=== PATIENT | female | born 1935 | race Caucasian/White ===

== ENCOUNTER 2017-01-21 08:00 | Inpatient (IN) | payer BC, OTHER ==
[2016-12-28 09:05] VITALS: BMI 32.0
--- NOTE | 2016-12-28 09:39 | PAT Medication Instructions ---
Service Date Dec 28, 2016. Current Home Medication List Acetaminophen (Tylenol), 650 MG PO QID PRN for Pain Apixaban (Eliquis), 2.5 MG PO QAM Coenzyme Q10 (Ubidecarenone) (Co Q-10), 200 MG PO QAM Fluoxetine (Prozac), 20 MG PO QAM Gabapentin (Neurontin), 300 MG PO TID Glipizide (Glipizide Er), 1 TAB PO QAM Levothyroxine Sodium (Synthroid), 50 MCG PO QAM Lisinopril (Zestril), 20 MG PO QAM Multivitamin (Multivitamin), 1 TAB PO QAM Pantoprazole (Protonix), 40 MG PO BID Rosuvastatin Calcium (Crestor), 10 MG PO QAM Medication Instructions For Your Scheduled Surgery - Check with surgeon/prescribing physician Apixaban (Eliquis), 2.5 MG PO QAM - Hold the following medications 2 weeks prior to surgery: Coenzyme Q10 (Ubidecarenone) (Co Q-10), 200 MG PO QAM - Hold the following medications the morning of surgery: Lisinopril (Zestril), 20 MG PO QAM Multivitamin (Multivitamin), 1 TAB PO QAM Glipizide (Glipizide Er), 1 TAB PO QAM - Take the following medications the morning of surgery with a sip of water: Rosuvastatin Calcium (Crestor), 10 MG PO QAM Pantoprazole (Protonix), 40 MG PO BID Levothyroxine Sodium (Synthroid), 50 MCG PO QAM Gabapentin (Neurontin), 300 MG PO TID Fluoxetine (Prozac), 20 MG PO QAM Acetaminophen (Tylenol), 650 MG PO QID PRN for Pain - Take the following medications as scheduled the night before surgery: Pantoprazole (Protonix), 40 MG PO BID Gabapentin (Neurontin), 300 MG PO TID Acetaminophen (Tylenol), 650 MG PO QID PRN for Pain If you have any questions please call us at [phone] (Renée Rudd PA-C) or [phone] or [phone]
--- NOTE | 2016-12-28 10:26 | DIAGNOSTIC IMAGING REPORT ---
TWO VIEW CHEST CLINICAL HISTORY: Preoperative examination. FINDINGS: PA and lateral chest radiographs are obtained. No prior studies are available for comparison at the time of dictation. The cardiomediastinal silhouette is unremarkable. There is atelectasis at the left lung base and mild elevation of right hemidiaphragm. The lungs and pleural spaces are otherwise clear. There is no pneumothorax. The skeletal structures are osteopenic. Degenerative change and mild scoliosis are noted in the thoracic spine. An IVC filter is noted in the upper abdomen. IMPRESSION: No active disease in the chest. Electronically signed by: Keith Park M.D. 12/28/2016 10:24 AM Dictated Date/Time: 12/28/2016 10:17 AM
[2016-12-28 10:32] LABS: BASO % 0.4 %; BASO ABS # 0.03 K/uL (0-0.2); COMPLETE YES; EOS % 1.5 %; HEMATOCRIT 38.9 % (37-47); IG% 0.1 %; LYMPH ABS # 2.17 K/uL (1.2-3.4); MEAN CORPUSCULAR HEMOGLOBIN 30.3 pg (25-34); MEAN CORPUSCULAR HGB CONC 33.7 g/dl (32-36); MEAN PLATELET VOLUME 11.8 fL (7.4-10.4); MONO % 9.7 %; NEUT % 58.3 %; PLATELET COUNT 219 K/uL (130-400); RED BLOOD COUNT 4.32 M/uL (4.2-5.4); WHITE BLOOD COUNT 7.24 K/uL (4.8-10.8)
[2016-12-28 10:59] LABS: BUN/CREATININE RATIO 21.3 (10-20); CREATININE 0.75 mg/dl (0.60-1.20); POTASSIUM 4.4 mmol/L (3.5-5.1)
[~2017-01-21] VITALS: Ht 162.6 cm; Wt 84.6 kg
[2017-01-21] VITALS (9 sets, daily range): BP systolic 99–176; BP diastolic 62–79; PULSE 71–88; TEMP 36.3–36.8; O2SAT 93–98; Ht 162.6 cm; Wt 84.6 kg
--- NOTE | 2017-01-21 07:17 | History & Physical Bridge Note ---
H&P Re-Evaluation Bridge Note: I have examined the patient, reviewed the History & Physical and in the interval since the performance of the History & Physical I have noted the following changes of clinical significance: No changes noted
[~2017-01-21 08:00] MED LIST: ACET-1311 PO; APIX1TAB PO; CEFAZOLIN 2000 MG/60 ML D5W IV SCH; COEN1CAP37 PO; CRS/10 PO; FLUO20CA35 PO; GABA-113 PO; GLIP-197 PO; LACTATED RINGER'S 1000ML 1,000 ML IV SCH; LEVO50TA PO; LISI-792 PO; MULT-506 PO; PANT40TA PO
[2017-01-21] MEDS ORDERED: ATROPINE SULFATE 0.1 MG/ML 5ML SYR IV PRN (08:15)
[2017-01-21] MEDS ORDERED: MoRPHine SULFATE 10 MG/ML CARP/VIAL IV PRN (08:15)
[2017-01-21] MEDS ORDERED: FENTANYL CITRATE INJ 50 MCG/1 ML 2 ML VIAL IV PRN (08:15)
[2017-01-21] MEDS ORDERED: ONDANSETRON INJ 2 MG/ML 2 ML VIAL IV PRN ×2 (08:15→12:00)
[2017-01-21] MEDS ORDERED: EpHEDrine SULFATE INJ 50 MG/ML AMP IV PRN (08:15)
[2017-01-21] MEDS ORDERED: MIDAZOLAM HCL 1 MG/ML 2ML VIAL ONE (08:51)
[2017-01-21] MEDS ORDERED: FENTANYL CITRATE INJ 50 MCG/1 ML 2 ML VIAL ONE ×3 (08:51→11:58)
[2017-01-21] MEDS ORDERED: BUPIVACAINE/EPINEPHRINE 0.5% MPF 1:200,000 30 ML VIAL ONE (09:28)
[2017-01-21] MEDS ORDERED: BACITRACIN 50000 UNIT VIAL ONE (09:28)
[2017-01-21] MEDS ORDERED: SODIUM CHLORIDE 0.9% PF 50 ML VIAL ONE (09:28)
--- NOTE | 2017-01-21 09:41 | History and Physical ---
History & Physical Date Jan 21, 2017. Chief Complaint back and leg pain History of Present Illness The patient is a 81 year old female with complaints of Additional History Hepatic Disease: No Endocrine Disorder: No Kidney Disease: No Hypertension: No Heart Disease: No Bleeding Tendencies: No Infectious Diseases: No Allergies Coded Allergies: Latex (Verified Allergy, Intermediate, itching, 01/21/17) Adhesives (Verified Allergy, Mild, TAPE - ITCHY AND RED, 01/21/17) NO KNOWN DRUG ALLERGIES (Verified Allergy, Mild, ., 01/21/17) Home Medications Scheduled Apixaban (Eliquis), 2.5 MG PO QAM Coenzyme Q10 (Ubidecarenone) (Co Q-10), 200 MG PO QAM Fluoxetine (Prozac), 20 MG PO QAM Glipizide (Glipizide Er), 1 TAB PO QAM Levothyroxine Sodium (Synthroid), 50 MCG PO QAM Lisinopril (Zestril), 20 MG PO QAM Multivitamin (Multivitamin), 1 TAB PO QAM Pantoprazole (Protonix), 40 MG PO BID Rosuvastatin Calcium (Crestor), 10 MG PO QAM Scheduled PRN Acetaminophen (Tylenol), 650 MG PO QID PRN for Pain Physical Examination Skin: warm/dry, no rash Eyes: normal inspection, EOMI, sclerae normal ENT: normal ENT inspection, pharynx normal Head: normocephalic, atraumatic Neck: supple, no adenopathy, trachea midline Respiratory/Chest: lungs clear, normal breath sounds, no respiratory distress Cardiovascular: regular rate, rhythm, no edema, no murmur Abdomen / GI: normal bowel sounds, non tender Back: normal inspection Extremities: normal inspection, normal range of motion Neurologic/Psych: no motor/sensory deficits, alert, normal reflexes, oriented x 3 Diagnosis lumbar stenosis Plan of Treatment decompression fusion L3-S1
[2017-01-21] MEDS ORDERED: HYDROmorphone INJ 2 MG/ML SYR/VIAL ONE ×3 (10:10→12:00)
[2017-01-21] MEDS ORDERED: ROCURONIUM BROMIDE 10 MG/ML 5 ML VIAL ONE (10:33)
[2017-01-21] MEDS ORDERED: DEXAMETHASONE SOD INJ 4 MG/ML VIAL ONE (10:33)
[2017-01-21] MEDS ORDERED: LIDOCAINE HCL 2% 2 ML VIAL (20MG/ML) ONE (10:33)
[2017-01-21] MEDS ORDERED: PROPOFOL IV EMULSION 10 MG/ML 20 ML VIAL IV ONE (10:33)
[2017-01-21] MEDS ORDERED: ONDANSETRON INJ 2 MG/ML 2 ML VIAL ONE (10:33)
[2017-01-21] MEDS ORDERED: GLYCOPYRROLATE INJ 0.2 MG/ML VIAL ONE (11:39)
[2017-01-21] MEDS ORDERED: EpHEDrine SULFATE 50MG/5ML SYR ONE (11:39)
[2017-01-21] MEDS ORDERED: NEOSTIGMINE METHYLSULFATE 1 MG/ML 10ML VIAL ONE (11:39)
[2017-01-21] MEDS ORDERED: SODIUM CHLORIDE 0.9% 1000ML 1,000 ML IV SCH (11:49)
--- NOTE | 2017-01-21 11:49 | [facility] Post Operative Brief Note ---
Immediate Operative Summary Operative Date Jan 21, 2017. Pre-Operative Diagnosis Lumbar Stenosis Post-Operative Diagnosis Lumbar Stenosis Procedure(s) Performed L3-L4, L4-L5, L5-S1 Lumber Laminectomy, Decompression; L3-L4, L4-L5, L5-S1 Posterolateral Fusion. Interbody cage at L5-S1 with the use of Safia and Bone Morphogentic Protein. Surgeon Dr. Bhargav Franklin Older Adult Social Work Specialist Surgeon(s) Juan Gallegos PA-C Estimated Blood Loss 325mL Findings stenosis/spondy Specimens None per surgeon
[2017-01-21] MEDS ORDERED: FLOSEAL HEMOSTATIC MATRIX 10ML TOP ONE (11:51)
[2017-01-21] MEDS ORDERED: BISACODYL 10 MG SUPP PR PRN (12:00)
[2017-01-21] MEDS ORDERED: ACETAMINOPHEN IV 100 ML IV PRN (12:00)
[2017-01-21] MEDS ORDERED: SOD PHOSPHATE/SOD BIPHOSPHATE ENEMA 132 ML BTL PR PRN (12:00)
[2017-01-21] MEDS ORDERED: LORAZEPAM INJ 0.5 MG in SYRINGE 0.75 ML IV PRN (12:00)
[2017-01-21] MEDS ORDERED: FAMOTIDINE 20 MG TAB PO PRN (12:00)
[2017-01-21] MEDS ORDERED: PROMETHAZINE HCL INJ 12.5 MG in SODIUM CHLORIDE 0.9% 50ML 50 ML IV PRN (12:00)
[2017-01-21] MEDS ORDERED: ACETAMINOPHEN 325 MG TAB PO PRN (12:00)
[2017-01-21] MEDS ORDERED: ALUMINUM/MAGNESIUM SUSP 30 ML UDC PO PRN (12:00)
[2017-01-21] MEDS ORDERED: hydrOXYzine HCL 25 MG TAB PO PRN (12:00)
[2017-01-21] MEDS ORDERED: DO NOT ADMINISTER FLU VACCINE PRN ×3 (12:00)
[2017-01-21] MEDS ORDERED: NALOXONE HCL 0.4 MG/1 ML VIAL/CARP IV PRN ×2 (12:00)
[2017-01-21] MEDS ORDERED: MAGNESIUM HYDROXIDE SUSP 30 ML UDC PO PRN (12:00)
[2017-01-21] MEDS ORDERED: DO NOT ADMINISTER PNEUMOCOCCAL VACCINE PRN ×2 (12:00)
[2017-01-21] MEDS ORDERED: METOCLOPRAMIDE HCL INJ 5 MG/ML 2 ML VIAL IV PRN (12:00)
--- NOTE | 2017-01-21 12:02 | DIAGNOSTIC IMAGING REPORT ---
INTRAOPERATIVE RADIOGRAPHS CLINICAL HISTORY: L3-S1 spinal fusion. Fluoroscopy time: 22 seconds FINDINGS: 2 spot fluoroscopic views of lumbar spine are presented. There is evidence of discectomy at L5-S1 with laminectomy and posterior fusion from L3 -S1. Interpedicular screws are present at all levels. Orthopedic hardware is grossly intact. IMPRESSION: Intraoperative images from L3 -S1 spinal fusion as above. Electronically signed by: Keith Park M.D. 01/21/2017 12:00 PM Dictated Date/Time: 01/21/2017 12:00 PM
--- NOTE | 2017-01-21 12:09 | OPERATIVE REPORT ---
DATE OF OPERATION: 01/21/2017 PREOPERATIVE DIAGNOSES: Spinal stenosis, spondylolisthesis. POSTOPERATIVE DIAGNOSIS: Same. PROCEDURE PERFORMED: 1. Lumbar decompression and medial facetectomy and foraminotomy L2-L3, L3-L4, L4-L5, L5-S1. 2. Posterior spinal fusion L3-L4, L4-L5, L5-S1. 3. Placement posterior segmental instrumentation using Orthros rods and screws as well as a crosslink L3-L4, L4-L5, L5-S1. 4. Interbody fusion L5-S1. 5. Placement of PEEK cage 10 x 22 at L5-S1. 6. Placement of locally harvested morselized autograft posterior gutters. 7. Placement of Infuse collagen sponge combined with Mastergraft in posterior gutters and Safia bone grafting interbody space. SURGEON: Dr. Bhargav Franklin. INFORMATION ANALYST: Due to the complex nature of the procedure, the entire surgery was performed with the clinical nursing assistant of SHEILA Sterling. The office assistant receptionist, under direct supervision, was involved in the actual performance of all aspects of the surgical procedure including hemostasis, tissue retraction and incision, instrument management, patient positioning, and wound closure. ANESTHESIA: General. DISPOSITION: The patient awakened and taken to PACU in stable condition. HISTORY OF PATIENT'S PROBLEMS: This is a 81-year-old female that presents with above-mentioned diagnosis. After failing an extensive course of nonoperative care, elected to undergo the above-mentioned procedure. Risks, benefits, pros, cons, and alternatives were outlined in detail preoperatively. PROCEDURE: The patient was met with preoperatively, case discussed and all questions were addressed. At that point the patient was taken back to operative suite and after undergoing successful general endotracheal intubation via department of anesthesia was placed in prone position on Stanley table atop Stiven frame. All bony prominences were well padded and the eyes were inspected to ensure there was no external pressure placed upon them. At this point, lumbar spine was prepped and draped in normal sterile fashion. Sharp dissection with the assistance of Bovie cautery performed down to and exposing the lamina and transverse processes of L3, L4, L5 and sacral ala bilaterally. From a caudal to cephalad fashion, complete laminectomy of L5, L4, L3 and partial laminectomy of L2 was performed addressing severe lateral recess foraminal disease. Pedicle screws were then placed in L3, L4, L5 and S1 levels bilaterally with the assistance of fluoroscopy and the appropriately sized jose a provisionally placed. Through a transforaminal approach on the left, a complete discectomy of L5-S1 was performed, endplates curetted to subcortical bleeding bone and a 10 x 22 mm PEEK cage filled with Safia bone grafting tapped into position. The rods were then locked into final position bilaterally, crosslink locked into place and transverse processes of L2, L3, L4, L5 and sacral ala burred to subcortical bleeding bone. Infused collagen sponge combined mastograph and locally harvested and soaked autograft was placed in the posterior gutters. A 7 flat BENOIT drain was inserted. Incision was closed with 1-0 Vicryl in the fascia, 2-0 Vicryl subcutaneously, 4-0 Monocryl for final skin closure. Steri-Strips and sterile dressing placed. The patient was awakened and taken to PACU in stable condition. I attest to the content of the Intraoperative Record and any orders documented therein. Any exceptio ns are noted below.
[2017-01-21] MEDS ORDERED: HYDROmorphone HCL 0.5MG/ML 50 ML CASSETTE ONE (12:24)
[2017-01-21] MEDS ORDERED: PHARMACY GLYCEMIC MGMT CONSULT PRN (12:29)
[2017-01-21] MEDS: HYDROmorphone HCL 0.5MG/ML 50 ML CASSETTE IV PRN ×3 (13:54→23:07)
--- NOTE | 2017-01-21 14:02 | Anesthesiology Progress Note ---
Anesthesia Post Op Note Date & Time Jan 21, 2017 at 14:03 Vital Signs Pain Intensity: 0 Vital Signs Past 12 Hours Date Time Temp Pulse Resp B/P Pulse Ox O2 Delivery O2 Flow Rate FiO2 01/21/17 13:40 79 16 142/70 94 Nasal Cannula 3 01/21/17 13:30 78 16 138/72 95 Nasal Cannula 3 01/21/17 13:20 82 16 133/68 94 Nasal Cannula 3 01/21/17 13:10 74 16 129/73 94 Nasal Cannula 3 01/21/17 13:00 77 16 142/77 95 Nasal Cannula 3 01/21/17 12:50 36.5 77 16 139/84 97 Nasal Cannula 3 01/21/17 12:40 Nasal Cannula 3 01/21/17 12:40 87 16 137/70 97 Mask 5 01/21/17 12:30 91 16 144/72 97 Mask 5 01/21/17 12:20 85 12 121/62 98 Mask 10 01/21/17 12:14 36.6 83 12 126/66 95 Mask 10 01/21/17 08:25 36.7 82 20 176/79 97 Room Air Notes Mental Status: alert / awake / arousable, participated in evaluation Pt Amnestic to Procedure: Yes Nausea / Vomiting: adequately controlled Pain: adequately controlled Airway Patency, RR, SpO2: stable & adequate BP & HR: stable & adequate Hydration State: stable & adequate Anesthetic Complications: no major complications apparent
[2017-01-21] MEDS: LACTATED RINGER'S 1000ML 1,000 ML IV SCH ×2 (14:19→18:22)
[2017-01-21] MEDS ORDERED: GLUCOSE 40% GEL 15 GM TUBE PO PRN (15:45)
[2017-01-21] MEDS ORDERED: DEXTROSE 50% 50 ML SYR IV PRN (15:45)
[2017-01-21] MEDS ORDERED: GLUCAGON FOR INJ 1 MG VIAL SQ PRN (15:45)
[2017-01-21] MEDS ORDERED: GLUCOSE 10 TABS/TUBE PO PRN (15:45)
--- NOTE | 2017-01-21 15:58 | Pharmacy Progress Note ---
Glycemic Control Intl Consult Date of Service Jan 21, 2017. Scope Glycemic Pharmacist consulted by Dr Franklin on 01/21/17 for glycemic control and to write orders per [facility] inpatient glycemic control protocol Objective Weight (Kilograms): 84.600 Accuchecks BSG (last 24hrs): Test 01/21/17 08:22 01/21/17 12:29 01/21/17 14:16 Bedside Glucose 133 mg/dl (70-90) 151 mg/dl (70-90) 162 mg/dl (70-90) Recent Pertinent Medications Outpatient Anti-diabetic Regimen: * Glipizide ER 5 mg po daily * A1c = pending % 01/22/17 The patient is currently receiving: * Basal insulin: none * Correctional Insulin: none * Prandial insulin: none * Oral Agents: Glipizide ER 5 mg daily Risk Factors for Insulin Resistance: * Steroids: Dexamethasone 12 mg in OR today, then 6 mg q8h x3 * Infection: on cefazolin perioperatively * Pressors: no * IVF: LR @ 150 ml/hr * Recent Surgery: OR today spinal surgery * Diet: npo advancing to type 2 diabetic * Mechanical Ventilation: no Assessment & Plan ASSESSMENT: * ADA & AACE recommend a goal blood sugar range 140-180 mg/dl for the majority of critically ill & non-critically ill patients. However, more stringent targets may be selected in individual cases. * 81 yo type 2 diabetic on oral meds. A1c pending to assess recent glycemic control. I expect BSG's to rise due to stress of surgery and steroids. The effect of dexamethasone may persist for 48-72 hr. Will start weight-based correction and carb ratio and reassess in am. PLAN FOR INPATIENT GLYCEMIC CONTROL: * Holding outpatient oral diabetes medications * no basal insulin at this time * Correctional Insulin with NOVOLOG per scale ACHS or Q6hrs while NPO * Goal Range: Low 110 mg/dL - High 150 mg/dL * Correction Factor: 30 mg/dL/unit * Nutritional / Prandial insulin per carb ratio of 1 unit per 9 grams CHO consumed * Please note that the plan above was derived based on current level of insulin resistance and hospital stress. These recommendations are appropriate for inpatient admission only. Plan of care upon discharge will need to be reassessed to avoid potential outpatient hypo/hyperglycemia. Thank you.
[2017-01-21] MEDS: DEXAMETHASONE INJ 6 MG in SYRINGE 0 ML IV SCH (18:22)
[2017-01-21] MEDS: CEFAZOLIN IV 2,000 MG in DEXTROSE 5% 50ML 50 ML IV SCH (18:22)
[2017-01-21] MEDS: INSULIN ASPART 100 UNITS/ML 3 ML PEN SC SCH ×2 (18:27→21:27)
[2017-01-21] MEDS: PANTOprazole SOD 40 MG TAB PO SCH (21:21)
[2017-01-21] MEDS: DOCUSATE SODIUM/SENNA 50/8.6MG TAB PO SCH (21:22)
[2017-01-22] VITALS (9 sets, daily range): BP systolic 108–140; BP diastolic 59–71; PULSE 68–90; TEMP 36.6–37.1; O2SAT 91–94
[2017-01-22] MEDS: DEXAMETHASONE INJ 6 MG in SYRINGE 0 ML IV SCH ×2 (01:41→10:35)
[2017-01-22] MEDS: CEFAZOLIN IV 2,000 MG in DEXTROSE 5% 50ML 50 ML IV SCH (01:41)
[2017-01-22] MEDS: LACTATED RINGER'S 1000ML 1,000 ML IV SCH (01:41)
[2017-01-22] MEDS ORDERED: DC PCA SCH (06:00)
[2017-01-22] MEDS ORDERED: HYDROmorphone INJ 1 MG/ML SYR IV PRN (06:00)
[2017-01-22] MEDS ORDERED: NURSING VERBAL MED ORDER ONE (06:00)
[2017-01-22] MEDS ORDERED: HYDROmorphone INJ 0.5 MG/0.5 ML SYR IV PRN (06:00)
[2017-01-22] MEDS ORDERED: OXYCODONE HCL IR 5 MG TAB (IMMEDIATE RELEASE) PO PRN (06:00)
[2017-01-22] MEDS: LEVOTHYROXINE 50 MCG TAB PO SCH (06:02)
[2017-01-22 07:16] LABS: COMPLETE YES; HEMATOCRIT 32.5 % (37-47); IG% 0.3 %; LYMPH % 7.3 %; LYMPH ABS # 0.76 K/uL (1.2-3.4); MEAN CELL VOLUME 89.5 fL (80-100); MEAN CORPUSCULAR HEMOGLOBIN 29.5 pg (25-34); MEAN CORPUSCULAR HGB CONC 32.9 g/dl (32-36); MEAN PLATELET VOLUME 11.9 fL (7.4-10.4); NEUT % 88.4 %; PLATELET COUNT 204 K/uL (130-400); RED BLOOD COUNT 3.63 M/uL (4.2-5.4); WHITE BLOOD COUNT 10.45 K/uL (4.8-10.8)
[2017-01-22 07:49] LABS: CALCIUM 8.6 mg/dl (8.5-10.1); CREATININE 0.89 mg/dl (0.60-1.20); POTASSIUM 4.3 mmol/L (3.5-5.1)
[2017-01-22] MEDS: ROSUVASTATIN CALCIUM 10 MG TAB PO SCH (08:32)
[2017-01-22] MEDS: PANTOprazole SOD 40 MG TAB PO SCH ×2 (08:32→21:22)
[2017-01-22] MEDS: FLUOXETINE HCL 20 MG CAP PO SCH (08:33)
[2017-01-22] MEDS: LISINOPRIL 20 MG TAB PO SCH (08:38)
[2017-01-22] MEDS: INSULIN ASPART 100 UNITS/ML 3 ML PEN SC SCH ×4 (08:42→21:00)
[2017-01-22 08:49] LABS: ESTIMATED AVERAGE GLUCOSE 143 mg/dl; HA1C FLAG Normal (Normal)
[2017-01-22] MEDS ORDERED: RXC5 PO (10:11)
--- NOTE | 2017-01-22 10:12 | Discharge Instructions ---
Discharge Instructions Date of Service Jan 22, 2017. Admission Reason for Admission: Lumbar Spinal Stenosis Discharge Discharge Diagnosis / Problem: stenosis Discharge Goals Goal(s): Improve function Activity Recommendations Activity Limitations: per Instructions/Follow-up section . Instructions / Follow-Up Instructions / Follow-Up ACTIVITY RECOMMENDATIONS: SELF CARE INSTRUCTIONS AFTER THORACIC/LUMBAR FUSIONS 1. You may walk to your tolerance. It is good exercise for your legs and back. Expect some back and intermittent leg aches and pains. 2. You may perform "counter-top" level activities (make a sandwich, isaias with a project, etc.). 3. No bending or lifting of more than 10 pounds or back twisting of any nature (roll like a log when turning in bed). 4. You may ride in a car for 20-30 minutes at a time. No driving until after your first visit with your doctor. 5. Frequent changes of position and restricting sitting to 30 minutes at a time will help limit the amount of back spasms and stiffness you may experience. 6. You may discontinue the use of ambulatory aids (cane, crutches, etc.) once your strength and confidence allow. 7. You may jack spinner the shower and let water strike your incision when you arrive home at least once daily. Do not take a tub bath, sit in a hot tub or go into a swimming pool until after your first recheck in the office. SPECIAL CARE INSTRUCTIONS: VERY IMPORTANT TO READ AND REVIEW A. Your surgical incision has been closed with a cosmetic suture under the skin that will dissolve in about 6 weeks. In 14 days, you can use a pair of clean scissors and cut the suture that is left outside of the skin at the ends of your incision. 1. The small skin tapes can be removed 7 days after surgery if they have not fallen off by that point. 2. You may keep the wound open to air as much as possible to promote healing after post-op day number 5 unless told otherwise by your doctor. 3. If you think the wound looks like it is becoming infected (redness or worsening drainage) and/or you are experiencing fever, chill or worsening back pain and muscle spasms, contact the office so that we may evaluate you as soon as possible. B. Complications are uncommon, but please contact us if you have any signs or symptoms of: 1. wound infection (fever higher than 102.5 degrees F, redness, separation of wound, drainage, or increasing pain from the incision) 2. blood clots in legs (pain, swelling, redness and warmth in legs) 3. urinary tract infection (fever higher than 102.5 degrees F, burning upon urination or increased frequency of urination) 4. nerve problems (inability to walk on your toes or heels, numbness, loss of bowel or bladder control) 5. any other symptoms that concern you C. Please call the office at if you have any concerns or questions about your operation or recovery. D. No smoking! Smoking drastically decreases the chance of a solid fusion. E. Do not take any anti-inflammatory medications (Indocin, Advil, Motrin, Aspirin, Naprosyn, etc.) as these may inhibit the chance of a solid fusion. Tylenol is okay to take for pain. MANAGING PAIN AFTER SPINAL SURGERY 1. Narcotic medication is intended for short-term use and will be provided for surgical pain. Surgical pain usually lasts for a period of 4-6 weeks. Narcotic medication includes Percocet, Vicodin, Darvocet, Tylenol #3 or Lortab. 2. Longer-term pain is more appropriately treated with non-narcotic medication such as Tylenol ES. 3. Muscle spasm is not appropriately treated with narcotics. Muscle relaxers such as Soma, Flexeril or Skelaxin can be used along with Tylenol ES. 4. Remember that we all live with some "aches and pains". This is not unusual or uncommon after an injury or as we get older. a. Back pain is expected and may include muscle spasms for 4 to 6 weeks after surgery. The pain should gradually improve. If the pain worsens for no apparent reason, please contact the office. b. Intermittent leg pain may also be experienced and should not be concerned about unless it worsens for no apparent reason. If so, please contact the office. 5. We will provide appropriate medication within the normal guidelines of their prescribed use. We will also be very cautious and aware of potential abuse and extended duration of patients' medication needs. a. Pain medications are for your comfort and to assist with sleep and rest so that the tissue can heal. They are not provided in order to return to normal activity and should not be used through the day. To do so or worsening pain at night can result from ongoing tissue damage and development of tolerance to the prescribed medicine. 6. Please allow 2-3 days to process refills. Prescriptions will not be mailed but must be picked up at the office. FOLLOW UP VISIT: Keep your scheduled follow-up appointment. Any questions, please call the office at . Current Hospital Diet Patient's current hospital diet: Diabetes Type 2 Diet Discharge Diet Recommended Diet: Regular Diet Procedures Procedures Performed: L3-L4, L4-L5, L5-S1 Lumber Laminectomy, Decompression; L3-L4, L4-L5, L5-S1 Posterolateral Fusion. Interbody cage at L5-S1 with the use of Safia and Bone Morphogentic Protein. Pending Studies Studies pending at discharge: no Laboratory Results Hemoglobin A1c Test 01/22/17 06:23 Range/Units Estimated Average Glucose 143 mg/dl Hemoglobin A1c 6.6 H 4.5-5.6 % Medical Emergencies . Who to Call and When: Medical Emergencies: If at any time you feel your situation is an emergency, please call 911 immediately. . Non-Emergent Contact Non-Emergency issues call your: Primary Care Provider . "Provider Documentation" section prepared by Bhargav Franklin. VTE Core Measure Inpt VTE Proph given/why not?: Meño Montiel, SCD's
--- NOTE | 2017-01-22 10:39 | PROGRESS NOTE ---
DATE: 01/22/2017 DATE: 01/22/2017. SUBJECTIVE: Postop day 1. Back pain controlled. Leg pain improved. Vital signs stable. T-max 37.0. BENOIT drained 100 mL over the last shift. Hematocrit this a.m. 32.5. OBJECTIVE: On exam the patient is in chair at bedside. Demonstrates good strength to testing. Appears comfortable. ASSESSMENT: Status post lumbar decompression and fusion. PLAN: At this time, will initiate physical therapy, advance her bowel regimen and anticipate home Tuesday with home health.
[2017-01-22] MEDS: DOCUSATE SODIUM/SENNA 50/8.6MG TAB PO SCH (21:22)
[2017-01-23] MEDS: LEVOTHYROXINE 50 MCG TAB PO SCH (05:49)
[2017-01-23] MEDS: POLYETHYLENE (MIRALAX) 17 GM PACK PO SCH ×4 (05:49→23:32)
[2017-01-23 07:09] VITALS: BP 144/80; PULSE 75; TEMP 37; O2SAT 95
[2017-01-23 07:10] VITALS: O2SAT 95
[2017-01-23] MEDS: PANTOprazole SOD 40 MG TAB PO SCH ×2 (08:53→20:34)
[2017-01-23] MEDS: ROSUVASTATIN CALCIUM 10 MG TAB PO SCH (08:53)
[2017-01-23] MEDS: FLUOXETINE HCL 20 MG CAP PO SCH (08:53)
[2017-01-23 08:54] VITALS: BP 118/73; PULSE 82
[2017-01-23] MEDS: LISINOPRIL 20 MG TAB PO SCH (08:54)
[2017-01-23] MEDS: INSULIN ASPART 100 UNITS/ML 3 ML PEN SC SCH ×4 (09:01→20:33)
--- NOTE | 2017-01-23 11:43 | PROGRESS NOTE ---
DATE: 01/23/2017 Postop day #2. Back pain controlled. Leg pain improved. Vital signs stable. T-max 37.0. BENOIT drained 60 mL. No bowel movement as of yet. On exam, she has good strength to testing. Sensory intact. ASSESSMENT: Status post lumbar decompression and fusion. PLAN: At this time, we will continue physical therapy, advance her bowel regimen and anticipate home in the next few days. Of note, the nurses explained to me that her last evening. The patient has not been told this news yet. The family would like to discuss this with her personally. Nevertheless, medically she needs to be in the hospital at least another day.
[2017-01-23 13:22] VITALS: BP 118/73; PULSE 82; O2SAT 95
[2017-01-23] MEDS: ACETAMINOPHEN 500 MG TAB PO PRN (15:01)
[2017-01-23 16:16] VITALS: BP 152/73; PULSE 89; TEMP 37.3; O2SAT 92
--- NOTE | 2017-01-23 16:58 | Pharmacy Progress Note ---
Glycemic Control: Progress Nt Date of Service Jan 23, 2017. Scope Glycemic Pharmacist consulted by Dr Franklin on 01/21/17 for glycemic control and to write orders per [facility] inpatient glycemic control protocol. Objective Accuchecks BSG (last 24hrs): Test 01/22/17 16:54 01/22/17 20:36 01/23/17 08:02 01/23/17 11:45 Bedside Glucose 176 mg/dl (70-90) 147 mg/dl (70-90) 122 mg/dl (70-90) 120 mg/dl (70-90) HbA1c: Test 01/22/17 06:23 Hemoglobin A1c 6.6 % (4.5-5.6) H Recent Pertinent Medications Outpatient Anti-diabetic Regimen: * Glipizide ER 5 mg po daily * A1c = 6.6 % 01/22/17 The patient is currently receiving: * Basal insulin none * Correctional Insulin: Novolog for correction Correction factor 30 mg/dl/unit Goal range Low 110 mg/dl- High 150 mg/dl * Prandial insulin: Per carb ratio of 1 unit per 9 Gm CHO consumed * Oral Agents: Glipizide ER 5 mg daily- on hold Risk Factors for Insulin Resistance: * Steroids: Dexamethasone 12 mg in OR 01/21, then 6 mg q8h x3- last dose give @1035 * Infection: no * Pressors: no * IVF: no * Recent Surgery: POD#2 spinal surgery * Diet: type 2 diabetic, fairly good appetite * Mechanical Ventilation: no Assessment & Plan ASSESSMENT: * ADA & AACE recommend a goal blood sugar range 140-180 mg/dl for the majority of critically ill & non-critically ill patients. However, more stringent targets may be selected in individual cases. 01/21/17 * 81 yo type 2 diabetic on oral meds. A1c pending to assess recent glycemic control. I expect BSG's to rise due to stress of surgery and steroids. The effect of dexamethasone may persist for 48-72 hr. Will start weight-based correction and carb ratio and reassess in am. 01/23/17 * Patient received 5 units of insulin on 01/21, 24 units on 01/22. BSG's ranged 120-176 over past 24 hr. BSG's did not rise too much in response to the steroid , and now have trended down nicely. Continue same Novolog and reassess in am whether it can be dc'd. PLAN FOR INPATIENT GLYCEMIC CONTROL: * Holding outpatient oral diabetes medications * no basal insulin at this time * Correctional Insulin with NOVOLOG per scale ACHS or Q6hrs while NPO * Goal Range: Low 110 mg/dL - High 150 mg/dL * Correction Factor: 30 mg/dL/unit * Nutritional / Prandial insulin per carb ratio of 1 unit per 9 grams CHO consumed DISCHARGE RECOMMENDATION: Patient's A1c was 6.6%, which may indicate too tight control with possible hypoglycemic episodes in an elderly patient. Consider stopping the glipizide and using diet alone. * Please note that the plan above was derived based on current level of insulin resistance and hospital stress. These recommendations are appropriate for inpatient admission only. Plan of care upon discharge will need to be reassessed to avoid potential outpatient hypo/hyperglycemia. Thank you.
[2017-01-23] MEDS: LORAZEPAM 0.5 MG TAB PO PRN (20:33)
[2017-01-23] MEDS: DOCUSATE SODIUM/SENNA 50/8.6MG TAB PO SCH (20:34)
[2017-01-23 23:34] VITALS: BP 106/60; PULSE 81; TEMP 37.1; O2SAT 91
[2017-01-24] MEDS: POLYETHYLENE (MIRALAX) 17 GM PACK PO SCH (05:49)
[2017-01-24] MEDS: LEVOTHYROXINE 50 MCG TAB PO SCH (05:49)
[2017-01-24] MEDS: ACETAMINOPHEN 500 MG TAB PO PRN (07:20)
[2017-01-24] MEDS: LORAZEPAM 0.5 MG TAB PO PRN (07:20)
[2017-01-24 07:24] VITALS: BP 151/76; PULSE 68; TEMP 36.6; O2SAT 92
[2017-01-24 07:25] VITALS: O2SAT 92
[2017-01-24] MEDS: LISINOPRIL 20 MG TAB PO SCH (09:00)
[2017-01-24] MEDS: ROSUVASTATIN CALCIUM 10 MG TAB PO SCH (09:08)
[2017-01-24] MEDS: FLUOXETINE HCL 20 MG CAP PO SCH (09:08)
[2017-01-24] MEDS: PANTOprazole SOD 40 MG TAB PO SCH (09:08)
[2017-01-24 09:11] VITALS: BP 100/67; PULSE 96
[2017-01-24] MEDS: INSULIN ASPART 100 UNITS/ML 3 ML PEN SC SCH (09:40)
--- NOTE | 2017-01-24 10:07 | Anesthesiology Progress Note ---
Anesthesia Post Op Note Date & Time Jan 24, 2017 at 10:06 Vital Signs Pain Intensity: 3.0 Vital Signs Past 12 Hours Date Time Temp Pulse Resp B/P Pulse Ox O2 Delivery O2 Flow Rate FiO2 01/24/17 09:11 96 100/67 01/24/17 07:25 92 Room Air 01/24/17 07:24 36.6 68 18 151/76 92 Room Air 01/23/17 23:34 37.1 81 18 106/60 91 Room Air 01/23/17 23:30 Room Air Notes Mental Status: alert / awake / arousable, participated in evaluation Pt Amnestic to Procedure: Yes Nausea / Vomiting: adequately controlled Pain: adequately controlled Airway Patency, RR, SpO2: stable & adequate BP & HR: stable & adequate Hydration State: stable & adequate Anesthetic Complications: no major complications apparent
--- NOTE | 2017-01-24 10:22 | Clinical Documentation Query ---
CLINICAL DOCUMENTATION QUERY The H&P in EMR reflects that this patient has no past medical history, however the patient is on the following medications at home;Eliquis, Glipizide, Prozac, Levothyroxine, Lisinopril, & Crestor. In your clinical opinion is this patient being managed for: ( ) Hypertension ( ) DM type II ( ) Depression ( ) Hyperlipidemia ( ) Past medical hx of DVT ( ) Past medical hx of PE ( ) Other explanation of clinical findings (Please Explain) ( ) Unable to determine (Please Define) ( ) Need to Discuss ( ) Not Agree The medical record reflects the following clinical findings, treatment, and risk factors. Clinical Indicators: As above. BP 142/72, HgA1c 6.6, AC BSG 170, BMI 32 Treatment: BSG's AC/HS, HgA1c, Q4hr VS, Lisinopril, Glipizide, novolog SQ, Prozac, Crestor, Risk Factors: Age, sex, BMI 32, Please clarify and document your clinical opinion in the progress notes and discharge summary. Terms such as "probable", "suspected", "likely", "questionable", "possible", or "still to be ruled out" are acceptable. IF IN AGREEMENT, YOU MUST DOCUMENT ABOVE DIAGNOSTIC STATEMENT IN DAILY PROGRESS NOTES AND DISCHARGE SUMMARY. This document is not part of the patient's record. Thank You, Dao Zimmerman RN [phone]
[2017-01-24 11:04] VITALS: BP 100/67; PULSE 96; TEMP 36.6; O2SAT 92
--- NOTE | 2017-01-24 16:32 | DISCHARGE SUMMARY ---
HOSPITAL COURSE FOLLOWS: On January 21, the patient underwent multilevel lumbar decompression and fusion, tolerated this well and taken to the orthopedic floor postoperatively. Postop day #1, she was up and ambulatory, progressed to postop day #2. Postop day #3, BENOIT drain decreased appropriately. Pain well controlled. She was subsequently discharged home with home health. Discharge orders and instructions found on the chart for further review.
== END 2017-01-24 12:08 | disposition home health service (06) | DRG 460 ==
LOC: ENRESERVDT → ENRESERVTM → C.ACU 08:00 → C.MSW 08:01
PROVIDERS: ADMIT Orthopaedic Surgery Orthopaedic Surgery of the Spine; ATTEND Orthopaedic Surgery Orthopaedic Surgery of the Spine
PROC: 0SG1071 Fusion of 2 or more Lumbar Vertebral Joints with Autologous Tissue Substitute, Posterior Approach, Posterior Column, Open Approach (ICD-10-PCS; principal; 2017-01-21 10:15)
PROC: 0SG3071 Fusion of Lumbosacral Joint with Autologous Tissue Substitute, Posterior Approach, Posterior Column, Open Approach (ICD-10-PCS; principal; 2017-01-21 10:15)
PROC: 01NB0ZZ Release Lumbar Nerve, Open Approach (ICD-10-PCS; principal; 2017-01-21 10:15)
PROC: 0ST40ZZ Resection of Lumbosacral Disc, Open Approach (ICD-10-PCS; principal; 2017-01-21 10:15)
PROC: 0SG30AJ Fusion of Lumbosacral Joint with Interbody Fusion Device, Posterior Approach, Anterior Column, Open Approach (ICD-10-PCS; principal; 2017-01-21 10:15)
PROC: 3E0U0GB Introduction of Recombinant Bone Morphogenetic Protein into Joints, Open Approach (ICD-10-PCS; principal; 2017-01-21 10:15)
DX: M48.06 Spinal stenosis, lumbar region (principal); M43.16 Spondylolisthesis, lumbar region; I10 Essential (primary) hypertension; E78.5 Hyperlipidemia, unspecified; I48.91 Unspecified atrial fibrillation; K21.9 Gastro-esophageal reflux disease without esophagitis; M19.90 Unspecified osteoarthritis, unspecified site; E11.40 Type 2 diabetes mellitus with diabetic neuropathy, unspecified; F32.9 Major depressive disorder, single episode, unspecified; I89.0 Lymphedema, not elsewhere classified; E66.9 Obesity, unspecified; Z68.32 Body mass index [BMI] 32.0-32.9, adult; Z86.718 Personal history of other venous thrombosis and embolism; Z96.653 Presence of artificial knee joint, bilateral; Z79.01 Long term (current) use of anticoagulants; Z79.84 Long term (current) use of oral hypoglycemic drugs; Z79.899 Other long term (current) drug therapy